=== PATIENT | male | born 1995 | race Caucasian/White ===

== ENCOUNTER 2016-12-23 15:25 | Emergency (ER) | payer OTHER ==
--- NOTE | 2016-12-23 16:21 | DIAGNOSTIC IMAGING REPORT ---
PROCEDURE: CT ABDOMEN/PELVIS W/O CONTRAST INDICATION: Right flank pain, initial encounter TECHNIQUE: Noncontrast axial images were obtained of the entire abdomen and pelvis with sagittal and coronal reformations. COMPARISON: CT abdomen/pelvis 08/20/2015 FINDINGS: ABDOMEN: 1.5 mm right UVJ calculus with mild right hydroureteronephrosis. There is a single punctate left renal nonobstructing calculus. Normal left ureter. Liver, gallbladder, pancreas, spleen and adrenal glands are normal. Normal abdominal aorta. PELVIS: Normal appendix. No pelvic mass, inflammatory changes or free fluid. Bones are unremarkable. IMPRESSION: 1. 1.5 mm right UVJ calculus with mild right hydroureteronephrosis 2. Single punctate nonobstructing left renal calculus 3. Results discussed with Herlinda Acosta All CT scans at this facility use dose modulation, iterative reconstruction, and/or weight-based dosing when appropriate to reduce radiation dose to as low as reasonably achievable.
--- NOTE | 2016-12-23 16:33 | ED NURSING NOTES ---
Clinical Report - Nurses [facility] [place] [address] 12/23/2016 15:27 Patient: TRISH REDDY TRIAGE Triage time 1544 PM. Chief Complaint: PAIN WITH URINATION and (right sided flank pain). Alert. No acute distress. --15:46 Moi Carl R.N. 15:44 12/23/16. BP: 144/82 taken on the left arm, via an automated monitor, while lying. HR: 80. RR: 16. O2 saturation: 100%. Temp: 98.4 F (oral). Pain level now: 09/07. --15:46 Moi Carl R.N. Weight: 81.6 kg stated. Height/Length: 68 inches Per Patient. BMI: 27.4. --15:47 Moi Carl R.N. Medications None. --15:46 Moi Carl R.N. Allergies No Known Drug Allergy. --15:46 Moi Carl R.N. History Arrived by private vehicle. Historian: patient. Unaccompanied. This is a new problem and onset was abrupt. (about 2 hours ago). ( Patient presents to the ED with symptoms of severe right sided flank pain. Patient has a hx of kidney stones, states that he passed a small stone last week.). Treatment SENIOR FINANCIAL: Took ibuprofen. FALL RISK ASSESSMENT: Fall risk assessment completed. No fall risk identified. NUTRITIONAL RISK ASSESSMENT: The nutritional risk assessment revealed no deficiencies. FUNCTIONAL ASSESSMENT: Functional assessment: no impairments noted. LEARNING NEEDS ASSESSMENT: The learning needs assessment revealed no barriers. SKIN INTEGRITY ASSESSMENT: Skin integrity risk assessment completed. No skin integrity risk identified. --15:46 Moi Carl R.N. SOCIAL HX: Never smoker. Occasional alcohol use. History of drug use: marijuana. --15:47 Moi Carl R.N. PROBLEMS: Abdominal Pain. Renal Colic. Ureterolithiasis. --15:46 Moi Carl R.N. ADDITIONAL SURGERIES: no known surgeries. PHYSICAL ASSESSMENT Ambulatory to room. GENERAL / NEURO / PSYCH: Alert. Oriented X 4. Appears in no acute distress. HEENT: Mucous membranes are pink. RESPIRATORY: Respirations not labored. Breath sounds within normal limits. CVS: Normal heart rate and rhythm. Capillary refill less than 2 seconds. GI / : Abdomen soft and nontender. Abdominal tenderness in the right lower quadrant. Guarding present. Bowel sounds within normal limits. ( nausea). SKIN: Skin is warm and dry. --15:47 Moi Carl R.N. NURSING PROGRESS NOTES 15:58 12/23/2016 Site #1 started via IV in the left forearm with an 18g angiocath; one attempt. Blood drawn: rainbow set. Labeled in the presence of the patient and sent to the lab. Saline lock flushed with 10 mL saline. --15:58 Moi Carl R.N. 15:58 12/23/2016 Toradol IVP 30 mg given over 2 minute(s) via site #1. Allergies verified and confirmed 5 rights. IV patency established. IV site checked: no pain, redness, or swelling. IV flushed thoroughly pre- and post-medication administration. IVP given by RN. --15:58 Moi Carl R.N. 15:58 12/23/2016 Zofran (Ondansetron HCl) IVP 4 mg given over 2 minute(s) via site #1. Allergies verified and confirmed 5 rights. IV patency established. IV site checked: no pain, redness, or swelling. IV flushed thoroughly pre- and post-medication administration. IVP given by RN. --15:58 Moi Carl R.N. 16:37 12/23/2016 Oxycodone-APAP (Oxycodone-Acetaminophen) PO 5/325 mg Tablets 1 tab given. Allergies verified, confirmed 5 rights and sedative warning given to the patient. --16:48 Ellie Dc R.N. 16:43 12/23/2016 Site #1 removed upon discharge. Bandaid applied. --16:48 Ellie Dc R.N. 16:43 12/23/2016 IV Saline Lock Drip IV Discontinued: bag #1 STOPPED upon discharge. Total amount infused: 0 mL. IV patency established. IV site checked: no pain, redness, or swelling. IV flushed thoroughly. --16:48 Ellie Dc R.N. late entry -15:45 PM. Reassurance given to the patient. Call light placed in reach. Side rails up x 1. Bed placed in lowest position. Brakes of bed on. --22:19 Moi Carl R.N. DISPOSITION / DISCHARGE 16:45. Condition at departure: improved and stable. No learning barriers present. Discharge instructions provided and reviewed with the patient and parent. Reviewed medication(s) (zofran,tordol, percocet). Patient and parent verbalized understanding. Written instructions provided in [place]er. The patient was discharged home and accompanied by parent. He left the Emergency Department ambulatory and via private vehicle. Parent driving. --16:52 Ellie Dc R.N. 16:45 12/23/16. BP: 138/78. HR: 74. RR: 18. O2 saturation: 100%. Temp: deferred. Pain level now: 07/08. --16:52 Ellie Dc R.N. Locked/Released at 12/23/2016 22:20 by Moi Carl R.N.
--- NOTE | 2016-12-23 16:33 | ED NURSING NOTES ---
Clinical Report - Nurses [facility] [place] [address] 12/23/2016 15:27 Patient: TRISH REDDY TRIAGE Triage time 1544 PM. Chief Complaint: PAIN WITH URINATION and (right sided flank pain). Alert. No acute distress. --15:46 Moi Carl R.N. 15:44 12/23/16. BP: 144/82 taken on the left arm, via an automated monitor, while lying. HR: 80. RR: 16. O2 saturation: 100%. Temp: 98.4 F (oral). Pain level now: 09/07. --15:46 Moi Carl R.N. Weight: 81.6 kg stated. Height/Length: 68 inches Per Patient. BMI: 27.4. --15:47 Moi Carl R.N. Medications None. --15:46 Moi Carl R.N. Allergies No Known Drug Allergy. --15:46 Moi Carl R.N. History Arrived by private vehicle. Historian: patient. Unaccompanied. This is a new problem and onset was abrupt. (about 2 hours ago). ( Patient presents to the ED with symptoms of severe right sided flank pain. Patient has a hx of kidney stones, states that he passed a small stone last week.). 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 FALL RISK ASSESSMENT: Fall risk assessment completed. No fall risk identified. NUTRITIONAL RISK ASSESSMENT: The nutritional risk assessment revealed no deficiencies. FUNCTIONAL ASSESSMENT: Functional assessment: no impairments noted. LEARNING NEEDS ASSESSMENT: The learning needs assessment revealed no barriers. SKIN INTEGRITY ASSESSMENT: Skin integrity risk assessment completed. No skin integrity risk identified. --15:46 Moi Carl R.N. SOCIAL HX: Never smoker. Occasional alcohol use. History of drug use: marijuana. --15:47 Moi Carl R.N. PROBLEMS: Abdominal Pain. Renal Colic. Ureterolithiasis. --15:46 Moi Carl R.N. ADDITIONAL SURGERIES: no known surgeries. PHYSICAL ASSESSMENT Ambulatory to room. GENERAL / NEURO / PSYCH: Alert. Oriented X 4. Appears in no acute distress. HEENT: Mucous membranes are pink. RESPIRATORY: Respirations not labored. Breath sounds within normal limits. CVS: Normal heart rate and rhythm. Capillary refill less than 2 seconds. GI / : Abdomen soft and nontender. Abdominal tenderness in the right lower quadrant. Guarding present. Bowel sounds within normal limits. ( nausea). SKIN: Skin is warm and dry. --15:47 Moi Carl R.N. NURSING PROGRESS NOTES 15:58 12/23/2016 Site #1 started via IV in the left forearm with an 18g angiocath; one attempt. Blood drawn: rainbow set. Labeled in the presence of the patient and sent to the lab. Saline lock flushed with 10 mL saline. --15:58 Moi Carl R.N. 15:58 12/23/2016 Toradol IVP 30 mg given over 2 minute(s) via site #1. Allergies verified and confirmed 5 rights. IV patency established. IV site checked: no pain, redness, or swelling. IV flushed thoroughly pre- and post-medication administration. IVP given by RN. --15:58 Moi Carl R.N. 15:58 12/23/2016 Zofran (Ondansetron HCl) IVP 4 mg given over 2 minute(s) via site #1. Allergies verified and confirmed 5 rights. IV patency established. IV site checked: no pain, redness, or swelling. IV flushed thoroughly pre- and post-medication administration. IVP given by RN. --15:58 Moi Carl R.N. 16:37 12/23/2016 Oxycodone-APAP (Oxycodone-Acetaminophen) PO 5/325 mg Tablets 1 tab given. Allergies verified, confirmed 5 rights and sedative warning given to the patient. --16:48 Ellie Dc R.N. 16:43 12/23/2016 Site #1 removed upon discharge. Bandaid applied. --16:48 Ellie Dc R.N. 16:43 12/23/2016 IV Saline Lock Drip IV Discontinued: bag #1 STOPPED upon discharge. Total amount infused: 0 mL. IV patency established. IV site checked: no pain, redness, or swelling. IV flushed thoroughly. --16:48 Ellie Dc R.N. late entry -15:45 PM. Reassurance given to the patient. Call light placed in reach. Side rails up x 1. Bed placed in lowest position. Brakes of bed on. --22:19 Moi Carl R.N. DISPOSITION / DISCHARGE 16:45. Condition at departure: improved and stable. No learning barriers present. Discharge instructions provided and reviewed with the patient and parent. Reviewed medication(s) (zofran,tordol, percocet). Patient and parent verbalized understanding. Written instructions provided in [place]ian. The patient was discharged home and accompanied by parent. He left the Emergency Department ambulatory and via private vehicle. Parent driving. --16:52 Ellie Dc R.N. 16:45 12/23/16. BP: 138/78. HR: 74. RR: 18. O2 saturation: 100%. Temp: deferred. Pain level now: 07/08. --16:52 Ellie Dc R.N. Locked/Released at 12/23/2016 22:20 by Moi Carl R.N.
--- NOTE | 2016-12-23 16:33 | ED CLINICAL REPORT ---
Clinical Report - Physicians/Mid Levels [facility] [address] [place] [address] 12/23/2016 15:27 Patient: TRISH REDDY Time Seen: 1540; upon arrival, initial patient contact, initial documentation, patient care assumed. Arrived- By private vehicle. Historian- patient. HISTORY OF PRESENT ILLNESS Chief Complaint: ABDOMINAL PAIN and FLANK PAIN. At its maximum, severity described as severe. When seen in the E.D., severity described as severe. Modifying factors. Not worsened by anything. Not relieved by anything. It is described as "pain", sharp and stabbing. No radiation. It is described as located in the right flank and the right abdomen and right lower quadrant. This started just prior to arrival about 2 hours ago DEPUTY GENERAL COUNSEL. The patient has had nausea. No loss of appetite, vomiting or diarrhea. No additional abdominal pain. No recent travel. Similar symptoms previously: Frequently, as bad. ( states it feels same as when he has had kidney stones). Recent medical care: Not recently seen/assessed. REVIEW OF SYSTEMS No constipation, black stools, hematemesis, difficulty with urination or urinary frequency. No bloody stools, fever, chest pain or difficulty breathing. He has had pain on urination. All systems otherwise negative, except as recorded above. PAST HISTORY See nurses notes. PROBLEMS: Abdominal Pain. Renal Colic. Ureterolithiasis. --15:46 Moi Carl R.N. ADDITIONAL SURGERIES: no known surgeries. SOCIAL HISTORY Never smoker. Occasional alcohol use. History of occasional drug use: marijuana. No recent travel. Is a local resident. FAMILY HISTORY Negative. ADDITIONAL NOTES The nursing notes have been reviewed with agreement regarding the chief complaint, HPI, ROS, PMH and patient medications and allergies. PHYSICAL EXAM Vital Signs: 12/23/2016 15:44 BP: 144/82. HR: 80. RR: 16. O2 saturation: 100%. Temp: 98.4 F. Pain level now: 10/10. Have been reviewed as normal and appear to be correct. Appearance: Alert. Oriented X3. No acute distress. Eyes: Pupils equal, round and reactive to light. Eyes normal inspection. Neck: Normal inspection. Neck supple. CVS: Normal heart rate and rhythm. Heart sounds normal. Pulses normal. Respiratory: No respiratory distress. Breath sounds normal. Chest nontender. Abdomen: Soft and nontender. Bowel sounds normal. No organomegaly. No mass. Back: Normal inspection. Skin: Skin warm and dry. Normal skin color. No rash. Normal skin turgor. Extremities: Extremities exhibit normal ROM. No lower extremity edema. Neuro: Oriented X 3. No motor deficit. No sensory deficit. LABS, X-RAYS, AND EKG Abdominal CT: . IMPRESSION: 1. 1.5 mm right UVJ calculus with mild right hydroureteronephrosis 2. Single punctate nonobstructing left renal calculus 3. Results discussed with Herlinda Acosta All CT scans at this facility use dose modulation, iterative reconstruction, and/or weight-based dosing when appropriate to reduce radiation dose to as low as reasonably achievable. Electronically Final signed by:Juan R Adams MD 12/23/2016 4:21:35 PM. The study was interpreted by the radiologist and discussed with the radiologist. Laboratory Tests: UA-Culture if indicated: (ALEC: 12/23/2016 15:24) ( [facility] 12/23/2016 16:23) IP Test Result Flag Units (Reference) URINE COLOR YELLOW URINE APPEARANCE CLOUDY URINE GLUCOSE NEGATIVE (NEGATIVE) URINE BILIRUBIN NEGATIVE (NEGATIVE) URINE KETONE NEGATIVE (NEGATIVE) URINE SPECIFIC GRAVITY 1.010 (1.010-1.030) URINE PH 8.5 H (5.0-8.0) URINE PROTEIN TRACE (NEGATIVE) URINE UROBILINOGEN 0.2 EU/dL (0.2-1.0) URINE NITRITE NEGATIVE (NEGATIVE) URINE BLOOD NEGATIVE (NEGATIVE) URINE LEUK ESTERASE NEGATIVE (NEGATIVE) CBC w Diff: (ALEC: 12/23/2016 15:55) ( [facility] 12/23/2016 16:04) Final results Test Result Flag Units (Reference) WHITE BLOOD COUNT 10.0 K/uL (4.5-11.5) RED BLOOD COUNT 5.12 M/uL (4.50-5.90) HEMOGLOBIN 15.2 gm/dL (13.5-17.5) HEMATOCRIT 46.1 % (41.0-53.0) MEAN CELL VOLUME 90 fL (80-100) MEAN CORPUSCULAR HGB 30 pg (26-34) MEAN CORPUSCULAR HGB CONC 33 g/dL (31-37) RED CELL DISTRIBUTION WIDTH 12.2 % (11.6-14.8) PLATELET COUNT 335 K/uL (150-400) NEUTROPHIL % 68.5 % (50-75) LYMPH % 21.9 L % (25-40) MONO % 8.2 % (3-14) EOSINOPHIL % 0.8 % (0-4) BASOPHIL % 0.6 % (0-2) CMP: (ALEC: 12/23/2016 15:55) ( MsgRcvd 12/23/2016 16:15) Final results Test Result Flag Units (Reference) GLUCOSE 102 mg/dL (70-110) BUN 12 mg/dL (7-18) CREATININE 1.1 mg/dL (0.6-1.3) Estimated GFR >60 mL/min Estimated GFR- >60 mL/min Note: Persistent reduction over 3 months in eGFR<60 mL/min/1.73 m2 defines CKD. Patients with eGFR values>=60 mL/min/1.73 m2 may also have CKD if evidence ofpersistent proteinuria. Additional information may be foundat www.kidney.org. SODIUM 137 mmol/L (136-145) POTASSIUM 3.4 L mmol/L (3.5-5.1) CHLORIDE 102 mmol/L (98-107) CARBON DIOXIDE 27 mmol/L (21-32) CALCIUM 8.8 mg/dL (8.5-10.1) TOTAL PROTEIN 7.7 g/dL (6.4-8.2) ALBUMIN 4.5 g/dL (3.3-5.0) BILIRUBIN, TOTAL 0.3 mg/dL (0.0-1.0) ALKALINE PHOSPHATASE 77 U/L (46-116) AST (SGOT) 18 U/L (15-37) ALT (SGPT) 37 U/L (12-78) LIPASE 151 U/L (73-393) AMYLASE 52 U/L (25-115) . PROGRESS AND PROCEDURES Course of Care: nurse reporting pt would like something else via rx than norco. Patient counseled in person regarding the patient's stable condition, test results and diagnosis. 16:31. Differential Diagnosis: I considered acute appendicitis, mesenteric lymphadenitis, diverticulitis, colon cancer, biliary colic, cholecystitis, cholelithiasis, hepatitis, pancreatitis, common bile duct obstruction, urinary tract infection, ureterolithiasis and viral syndrome as a possible cause of abdominal pain in this patient. This is a partial list of diagnoses considered. Above considerations are based on history, physical exam, laboratory data and other information. Differential diagnosis was discussed with patient. Disposition: Discharged home in good and improved condition (16:33). Condition: good and stable. CLINICAL IMPRESSION Ureterolithiasis (single stone) in the right kidney with renal colic. No hydronephrosis, acute pyelonephritis, urinary tract infection or hematuria. INSTRUCTIONS Do not work today, tomorrow. Drink plenty of fluids. (strain all urine). Warnings: GENERAL WARNINGS: Return or contact your physician immediately if your condition worsens or changes unexpectedly, if not improving as expected, or if other problems arise. SPECIFICALLY, return if you develop pain in the abdomen, pelvis or testicle, fever, the inability to keep fluids down, blood in vomitus, blood in diarrhea, fainting or lightheadedness. Prescription Medications: Zofran 4 mg: Take 1 orally every six hours as needed for nausea/vomiting. Dispense ten (10). No refills. Substitution is permissible. Percocet 5 mg/325 mg: take 1 tablet orally every 6 hours as needed for pain. Dispense fifteen (15). No refills. Substitution is permissible. Toradol 10 mg tablets: Take 1 tablet orally every 6 hours as needed. Dispense fifteen (15). No refills. Substitution is permissible. Follow-up: Follow up with your doctor in about three days even if well. Call for an appointment. Summary of care provided to patient. Understanding of the discharge instructions verbalized by patient. (Electronically signed by Herlinda Acosta A.R.N.P. 12/23/2016 20:21)
--- NOTE | 2016-12-23 16:33 | ED ORDER SUMMARY ---
..... Patient: TRISH REDDY OrderSheet [facility] VisitID: [id number] [place] [address] 21y, M Registration Date/Time: 12/23/2016 ORDER SHEET Weight: 81.6 kg (stated) Allergies: No Known Drug Allergy GENERAL ORDERS: UA-Culture if indicated Urgent (15:41 12/23/2016 HOShaughnessy R.N. per protocol) (Ack 15:43 LNations ER Tech1) (15:58 HOShaughnessy R.N.) CBC w Diff Urgent (15:48 12/23/2016 HBivens A.R.N.P.) (Ack 15:57 LNations ER Tech1) (15:58 HOShaughnessy R.N.) CMP Urgent (15:48 12/23/2016 HBivens A.R.N.P.) (Ack 15:57 LNations ER Tech1) (15:58 HOShaughnessy R.N.) Amylase Urgent (15:48 12/23/2016 HBivens A.R.N.P.) (Ack 15:57 LNations ER Tech1) (15:58 HOShaughnessy R.N.) Lipase Urgent (15:48 12/23/2016 HBivens A.R.N.P.) (Ack 15:57 LNations ER Tech1) (15:58 HOShaughnessy R.N.) CT Abd/Pel wo Cont Urgent (15:48 12/23/2016 HBivens A.R.N.P.) (Ack 15:57 LNations ER Tech1) (16:36 DDean R.N.) Urine Strainer (16:34 12/23/2016 HBivens A.R.N.P.) (16:47 DDean R.N.) MEDICATION ORDERS: Oxycodone-APAP PO 5/325 mg (HIGH ALERT MEDICATION, NOW) (16:41 12/23/2016 HBivens A.R.N.P.) (16:48 DDean R.N.) IV FLUIDS: Toradol IV 30 mg (NOW) (15:47 12/23/2016 HBivens A.R.N.P.) (15:58 Kleber R.N.) Zofran IV 4 mg (NOW) (15:47 12/23/2016 HBivens A.R.N.P.) (15:58 Kleber R.N.) IV Saline Lock (15:48 12/23/2016 HBivens A.R.N.P.) (15:58 Kleber R.N.) ORDER SHEET NOTES: [Electronically signed by Herlinda AcostaR.N.PKiara (20:21 12/23/2016)] [Electronically signed by Moi Carl R.N. (22:20 12/23/2016)] [Electronically locked/signed by Moi Carl R.N. (22:20 12/23/2016)]
--- NOTE | 2016-12-23 16:33 | ED ORDER SUMMARY ---
..... Patient: TRISH REDDY OrderSheet [facility] VisitID: [id number] [place] [address] 21y, M Registration Date/Time: 12/23/2016 ORDER SHEET Weight: 81.6 kg (stated) Allergies: No Known Drug Allergy GENERAL ORDERS: UA-Culture if indicated Urgent (15:41 12/23/2016 HOShaughnessy R.N. per protocol) (Ack 15:43 LNations ER Tech1) (15:58 HOShaughnessy R.N.) CBC w Diff Urgent (15:48 12/23/2016 HBivens A.R.N.P.) (Ack 15:57 LNations ER Tech1) (15:58 HOShaughnessy R.N.) CMP Urgent (15:48 12/23/2016 HBivens A.R.N.P.) (Ack 15:57 LNations ER Tech1) (15:58 HOShaughnessy R.N.) Amylase Urgent (15:48 12/23/2016 HBivens A.R.N.P.) (Ack 15:57 LNations ER Tech1) (15:58 HOShaughnessy R.N.) Lipase Urgent (15:48 12/23/2016 HBivens A.R.N.P.) (Ack 15:57 LNations ER Tech1) (15:58 HOShaughnessy R.N.) CT Abd/Pel wo Cont Urgent (15:48 12/23/2016 HBivens A.R.N.P.) (Ack 15:57 LNations ER Tech1) (16:36 DDean R.N.) Urine Strainer (16:34 12/23/2016 HBivens A.R.N.P.) (16:47 DDean R.N.) MEDICATION ORDERS: Oxycodone-APAP PO 5/325 mg (HIGH ALERT MEDICATION, NOW) (16:41 12/23/2016 HBivens A.R.N.P.) (16:48 DDean R.N.) IV FLUIDS: Toradol IV 30 mg (NOW) (15:47 12/23/2016 HBivens A.R.N.P.) (15:58 Kleber R.N.) Zofran IV 4 mg (NOW) (15:47 12/23/2016 HBivens A.R.N.P.) (15:58 Kleber R.N.) IV Saline Lock (15:48 12/23/2016 HBivens A.R.N.P.) (15:58 Kleber R.N.) ORDER SHEET NOTES: [Electronically signed by Herlinda AcostaR.N.PKiara (20:21 12/23/2016)] [Electronically signed by Moi Carl R.N. (22:20 12/23/2016)] [Electronically locked/signed by Moi Carl R.N. (22:20 12/23/2016)]
--- NOTE | 2016-12-23 22:20 | ED MED RECONCILIATION SUMMARY ---
Patient: TRISH REDDY Medication Reconciliation Report [facility] VisitID: [id number] [place] [address] 21y, M Registration Date/Time: 12/23/2016 Weight: 81.6 kg Height/Length: 68 in. BMI: 27.4 ALLERGIES: No Known Drug Allergy The patient's Home Medications are listed below: NONE. The source(s) of the original Home Medication information: Not obtained. The following Medications were given to the patient in the Emergency Department: Toradol [IVP] IVP 30 mg, administered: 12/23/2016 3:58:00 PM Zofran [IVP] IVP 4 mg, administered: 12/23/2016 3:58:00 PM Oxycodone-APAP [PO] PO 1 tab, administered: 12/23/2016 4:37:00 PM The following Medications were prescribed to the patient: Zofran 4 mg: Take 1 orally every six hours as needed for nausea/vomiting. Dispense ten (10). No refills. Substitution is permissible. -- Herlinda Acosta, A.R.N.P. Percocet 5 mg/325 mg: take 1 tablet orally every 6 hours as needed for pain. Dispense fifteen (15). No refills. Substitution is permissible. -- Herlinda Acosta, A.R.N.P. Toradol 10 mg tablets: Take 1 tablet orally every 6 hours as needed. Dispense fifteen (15). No refills. Substitution is permissible. -- Herlinda Acosta A.R.N.P.
--- NOTE | 2016-12-23 22:20 | ED MAR SUMMARY ---
..... Medication Administration Record [facility] [address] [place] [address] Patient: TRISH REDDY Visit ID: [id number] 21y, M Weight: 81.6 kg Height/Length: 68 in BMI: 27.4 ALLERGIES: No Known Drug Allergy Given 15:58 12/23/2016 Moi Carl, RAnia Medication Administered: TORADOL [IVP], Dose: 30 mg IVP over 2 minute(s), Site: #1 left forearm. Medication Ordered: Toradol IV 30 mg (NOW). Given 15:58 12/23/2016 Moi Carl RAnia Medication Administered: ZOFRAN [IVP] (ONDANSETRON HCL), Dose: 4 mg IVP over 2 minute(s), Site: #1 left forearm. Medication Ordered: Zofran IV 4 mg (NOW). Given 16:37 12/23/2016 Ellie Dc RAnia Medication Administered: OXYCODONE-APAP [PO] (OXYCODONE-ACETAMINOPHEN), Dose: 1 tab 5/325 mg Tablets PO. Medication Ordered: Oxycodone-APAP PO 5/325 mg (HIGH ALERT MEDICATION, NOW).
--- NOTE | 2016-12-23 22:20 | ED DISCHARGE INSTRUCTIONS ---
Patient: TRISH REDDY General Instructions [facility] VisitID: [id number] [place] [address] 21y, M Registration Date/Time: 12/23/2016 Ureterolithiasis (single stone) in the right kidney with renal colic. No hydronephrosis, acute pyelonephritis, urinary tract infection or hematuria. INSTRUCTIONS Do not work today, tomorrow. Drink plenty of fluids. (strain all urine). Warnings: GENERAL WARNINGS: Return or contact your physician immediately if your condition worsens or changes unexpectedly, if not improving as expected, or if other problems arise. SPECIFICALLY, return if you develop pain in the abdomen, pelvis or testicle, fever, the inability to keep fluids down, blood in vomitus, blood in diarrhea, fainting or lightheadedness. Prescription Medications: Zofran 4 mg: Take 1 orally every six hours as needed for nausea/vomiting. Dispense ten (10). No refills. Substitution is permissible. Percocet 5 mg/325 mg: take 1 tablet orally every 6 hours as needed for pain. Dispense fifteen (15). No refills. Substitution is permissible. Toradol 10 mg tablets: Take 1 tablet orally every 6 hours as needed. Dispense fifteen (15). No refills. Substitution is permissible. Follow-up: Follow up with your doctor in about three days even if well. Call for an appointment. Summary of care provided to patient. Understanding of the discharge instructions verbalized by patient. ADDITIONAL INFORMATION Kidney Stone (W/ Colic) The sharp cramping pain and nausea/vomiting that you have is due to a small stone which has formed in the kidney and is now passing down a narrow tube (ureter) on its way to your bladder. Once it reaches your bladder, the pain will stop. The stone may pass in your urine stream in one piece. [The size may be 1/16" to 1/4" (1-6mm)]. Or, the stone may also break up into julia fragments which you may not even notice. Once you have had a kidney stone, you are at risk for developing another one in the future. Home Care: Drink plenty of fluids (at least 8 to 10 glasses of water a day). Most stones will pass on their own, but may take from a few hours to a few days. Sometimes the stone is too large to pass by itself and special methods will have to be used to remove the stone. Each time you urinate, do so in a jar. Pour the urine from the jar through the strainer and into the toilet. Continue doing this until 24 hours after your pain stops. By then, if there was a kidney stone, it should pass from your bladder. Some stones dissolve into sand-like particles and pass right through the strainer. In that case, you wont ever see a stone. Save any stone that you find in the strainer and bring it to your doctor for analysis. It may be possible to prevent certain types of stones from forming. Therefore, it is important to know what kind of stone you have. Try to stay as active as possible since this will help the stone pass. Do not stay in bed unless your pain prevents you from getting up. You may notice a red, pink or brown color to your urine. This is normal while passing a kidney stone. Follow Up with your doctor or return to this facility if the pain lasts more than 48 hours. Get Prompt Medical Attention if any of the following occur: Pain that is not controlled by the medicine given Repeated vomiting or unable to keep down fluids Weakness, dizziness or fainting Fever of 100.4F (38C) or higher, or as directed by your healthcare provider Passage of solid red or brown urine (can't see through it) or urine with lots of blood clots Unable to pass urine for 8 hours and increasing bladder pressure Ondansetron Oral disintegrating tablet What is this medicine? ONDANSETRON (on ERIN se tahmina) is used to treat nausea and vomiting caused by chemotherapy. It is also used to prevent or treat nausea and vomiting after surgery. How should I use this medicine? These tablets are made to dissolve in the mouth. Do not try to push the tablet through the foil backing. With dry hands, peel away the foil backing and gently remove the tablet. Place the tablet in the mouth and allow it to dissolve, then swallow. While you may take these tablets with water, it is not necessary to do so. Talk to your radio maintainer regarding the use of this medicine in children. Special care may be needed. What side effects may I notice from receiving this medicine? Side effects that you should report to your doctor or health point of care specialist as soon as possible: allergic reactions like skin rash, itching or hives, swelling of the face, lips, or tongue breathing problems dizziness fast or irregular heartbeat feeling faint or lightheaded, falls fever and chills swelling of the hands and feet tightness in the chest Side effects that usually do not require medical attention (report to your doctor or health point of care specialist if they continue or are bothersome): constipation or diarrhea headache What may interact with this medicine? Do not take this medicine with any of the following medications: -apomorphine -cisapride -dofetilide -dronedarone -pimozide -thioridazine -ziprasidone This medicine may also interact with the following medications: -carbamazepine -phenytoin -rifampicin -tramadol -other medicines that prolong the QT interval (cause an abnormal heart rhythm) What if I miss a dose? If you miss a dose, take it as soon as you can. If it is almost time for your next dose, take only that dose. Do not take double or extra doses. Where should I keep my medicine? Keep out of the reach of children. Store between 2 and 30 degrees C (36 and 86 degrees F). Throw away any unused medicine after the expiration date. What should I tell my health care provider before I take this medicine? They need to know if you have any of these conditions: heart disease history of irregular heartbeat liver disease low levels of magnesium or potassium in the blood an unusual or allergic reaction to ondansetron, granisetron, other medicines, foods, dyes, or preservatives or trying to get breast-feeding What should I watch for while using this medicine? Check with your doctor or health point of care specialist as soon as you can if you have any sign of an allergic reaction. Oxycodone Hydrochloride, Acetaminophen Oral tablet What is this medicine? ACETAMINOPHEN; OXYCODONE (a set a PAYTON caleb fen; ox i KOE done) is a pain reliever. It is used to treat mild to moderate pain. How should I use this medicine? Take this medicine by mouth with a full glass of water. Follow the directions on the prescription label. Take your medicine at regular intervals. Do not take your medicine more often than directed. Talk to your radio maintainer regarding the use of this medicine in children. Special care may be needed. Patients over 65 years old may have a stronger reaction and need a smaller dose. What side effects may I notice from receiving this medicine? Side effects that you should report to your doctor or health point of care specialist as soon as possible: allergic reactions like skin rash, itching or hives, swelling of the face, lips, or tongue breathing difficulties, wheezing confusion light headedness or fainting spells severe stomach pain yellowing of the skin or the whites of the eyes Side effects that usually do not require medical attention (report to your doctor or health point of care specialist if they continue or are bothersome): dizziness drowsiness nausea vomiting What may interact with this medicine? alcohol antihistamines barbiturates like amobarbital, butalbital, butabarbital, methohexital, pentobarbital, phenobarbital, thiopental, and secobarbital benztropine drugs for bladder problems like solifenacin, trospium, oxybutynin, tolterodine, hyoscyamine, and methscopolamine drugs for breathing problems like ipratropium and tiotropium drugs for certain stomach or intestine problems like propantheline, homatropine methylbromide, glycopyrrolate, atropine, belladonna, and dicyclomine general anesthetics like etomidate, ketamine, nitrous oxide, propofol, desflurane, enflurane, halothane, isoflurane, and sevoflurane medicines for depression, anxiety, or psychotic disturbances medicines for sleep muscle relaxants naltrexone narcotic medicines (opiates) for pain phenothiazines like perphenazine, thioridazine, chlorpromazine, mesoridazine, fluphenazine, prochlorperazine, promazine, and trifluoperazine scopolamine tramadol trihexyphenidyl What if I miss a dose? If you miss a dose, take it as soon as you can. If it is almost time for your next dose, take only that dose. Do not take double or extra doses. Where should I keep my medicine? Keep out of the reach of children. This medicine can be abused. Keep your medicine in a safe place to protect it from theft. Do not share this medicine with anyone. Selling or giving away this medicine is dangerous and against the law. Store at room temperature between 20 and 25 degrees C (68 and 77 degrees F). Keep container tightly closed. Protect from light. This medicine may cause accidental overdose and if it is taken by other adults, children, or pets. Flush any unused medicine down the toilet to reduce the chance of harm. Do not use the medicine after the expiration date. What should I tell my health care provider before I take this medicine? They need to know if you have any of these conditions: brain tumor Crohn's disease, inflammatory bowel disease, or ulcerative colitis drink more than 3 alcohol containing drinks per day drug abuse or addiction head injury heart or circulation problems kidney disease or problems going to the bathroom liver disease lung disease, asthma, or breathing problems an unusual or allergic reaction to acetaminophen, oxycodone, other opioid analgesics, other medicines, foods, dyes, or preservatives or trying to get breast-feeding What should I watch for while using this medicine? Tell your doctor or health point of care specialist if your pain does not go away, if it gets worse, or if you have new or a different type of pain. You may develop tolerance to the medicine. Tolerance means that you will need a higher dose of the medication for pain relief. Tolerance is normal and is expected if you take this medicine for a long time. Do not suddenly stop taking your medicine because you may develop a severe reaction. Your body becomes used to the medicine. This does NOT mean you are addicted. Addiction is a behavior related to getting and using a drug for a non-medical reason. If you have pain, you have a medical reason to take pain medicine. Your doctor will tell you how much medicine to take. If your doctor wants you to stop the medicine, the dose will be slowly lowered over time to avoid any side effects. You may get drowsy or dizzy. Do not drive, use machinery, or do anything that needs mental alertness until you know how this medicine affects you. Do not stand or sit up quickly, especially if you are an older patient. This reduces the risk of dizzy or fainting spells. Alcohol may interfere with the effect of this medicine. Avoid alcoholic drinks. There are different types of narcotic medicines (opiates) for pain. If you take more than one type at the same time, you may have more side effects. Give your health care provider a list of all medicines you use. Your doctor will tell you how much medicine to take. Do not take more medicine than directed. Call emergency for help if you have problems breathing. The medicine will cause constipation. Try to have a bowel movement at least every 2 to 3 days. If you do not have a bowel movement for 3 days, call your doctor or health point of care specialist. Do not take Tylenol (acetaminophen) or medicines that have acetaminophen with this medicine. Too much acetaminophen can be very dangerous. Many nonprescription medicines contain acetaminophen. Always read the labels carefully to avoid taking more acetaminophen. Ketorolac Tromethamine Oral tablet What is this medicine? KETOROLAC (kaylen toe ROLE ak) is a non-steroidal anti-inflammatory drug (NSAID). It is used for a short while to treat moderate to severe pain, including pain after surgery. It should not be used for more than 5 days. How should I use this medicine? Take this medicine by mouth with a full glass of water. Follow the directions on the prescription label. Take your medicine at regular intervals. Do not take your medicine more often than directed. Do not take more than the recommended dose. A special MedGuide will be given to you by the pharmacist with each prescription and refill. Be sure to read this information carefully each time. Talk to your radio maintainer regarding the use of this medicine in children. While this drug may be prescribed for children as young as 16 years of age for selected conditions, precautions do apply. Patients over 65 years old may have a stronger reaction and need a smaller dose. What side effects may I notice from receiving this medicine? Side effects that you should report to your doctor or health point of care specialist as soon as possible: allergic reactions like skin rash, itching or hives, swelling of the face, lips, or tongue black or tarry stools breathing problems changes in vision chest pain high blood pressure nausea or vomiting redness, blistering, peeling or loosening of the skin, including inside the mouth severe abdominal pain slurred speech or weakness on one side of the body unexplained weight gain or swelling unusual bleeding or bruising unusually weak or tired yellowing of eyes or skin Side effects that usually do not require medical attention (report to your doctor or health point of care specialist if they continue or are bothersome): diarrhea dizziness headache heartburn What may interact with this medicine? Do not take this medicine with any of the following medications: aspirin and aspirin-like medicines cidofovir methotrexate NSAIDs, medicines for pain and inflammation, like ibuprofen or naproxen pemetrexed probenecid This medicine may also interact with the following medications: alcohol alendronate alprazolam carbamazepine cyclosporine diuretics flavocoxid fluoxetine ginkgo lithium medicines for high blood pressure like enalapril medicines that affect platelets like pentoxifylline medicines that treat or prevent blood clots like heparin, warfarin muscle relaxants phenytoin steroid medicines like prednisone or cortisone thiothixene What if I miss a dose? If you miss a dose, take it as soon as you can. If it is almost time for your next dose, take only that dose. Do not take double or extra doses. Where should I keep my medicine? Keep out of the reach of children. Store at room temperature between 20 and 25 degrees C (68 and 77 degrees F). Throw away any unused medicine after the expiration date. What should I tell my health care provider before I take this medicine? They need to know if you have any of these conditions: asthma bleeding problems like hemophilia cigarette smoker drink more than 3 alcohol containing drinks a day heart disease or circulation problems such as heart failure or leg edema (fluid retention) high blood pressure kidney disease liver disease stomach bleeding or ulcers an unusual or allergic reaction to ketorolac, aspirin, other NSAIDs, other medicines, foods, dyes, or preservatives or trying to get breast-feeding What should I watch for while using this medicine? Tell your doctor or health point of care specialist if your pain does not get better. Talk to your doctor before taking another medicine for pain. Do not treat yourself. This medicine does not prevent heart attack or stroke. In fact, this medicine may increase the chance of a heart attack or stroke. The chance may increase with longer use of this medicine and in people who have heart disease. If you take aspirin to prevent heart attack or stroke, talk with your doctor or health point of care specialist. Do not take medicines such as ibuprofen and naproxen with this medicine. Side effects such as stomach upset, nausea, or ulcers may be more likely to occur. Many medicines available without a prescription should not be taken with this medicine. This medicine can cause ulcers and bleeding in the stomach and intestines at any time during treatment. Do not smoke cigarettes or drink alcohol. These increase irritation to your stomach and can make it more susceptible to damage from this medicine. Ulcers and bleeding can happen without warning symptoms and can cause . You may get drowsy or dizzy. Do not drive, use machinery, or do anything that needs mental alertness until you know how this medicine affects you. Do not stand or sit up quickly, especially if you are an older patient. This reduces the risk of dizzy or fainting spells. This medicine can cause you to bleed more easily. Try to avoid damage to your teeth and gums when you brush or floss your teeth. You have been given the following additional information: Kidney Stone W/ Colic Ondansetron Oral disintegrating tablet Oxycodone Hydrochloride, Acetaminophen Oral tablet Ketorolac Tromethamine Oral tablet Do not work today, tomorrow. (Electronically signed by Herlinda Acosta A.R.N.P. 12/23/2016 20:21)
--- NOTE | 2016-12-23 22:20 | ED MAR SUMMARY ---
..... Medication Administration Record [facility] [address] [place] [address] Patient: TRISH REDDY Visit ID: [id number] 21y, M Weight: 81.6 kg Height/Length: 68 in BMI: 27.4 ALLERGIES: No Known Drug Allergy Given 15:58 12/23/2016 Moi Carl, RAnia Medication Administered: TORADOL [IVP], Dose: 30 mg IVP over 2 minute(s), Site: #1 left forearm. Medication Ordered: Toradol IV 30 mg (NOW). Given 15:58 12/23/2016 Moi Carl RAnia Medication Administered: ZOFRAN [IVP] (ONDANSETRON HCL), Dose: 4 mg IVP over 2 minute(s), Site: #1 left forearm. Medication Ordered: Zofran IV 4 mg (NOW). Given 16:37 12/23/2016 Ellie Dc RAnia Medication Administered: OXYCODONE-APAP [PO] (OXYCODONE-ACETAMINOPHEN), Dose: 1 tab 5/325 mg Tablets PO. Medication Ordered: Oxycodone-APAP PO 5/325 mg (HIGH ALERT MEDICATION, NOW).
--- NOTE | 2016-12-23 22:20 | ED MED RECONCILIATION SUMMARY ---
Patient: TRISH REDDY Medication Reconciliation Report [facility] VisitID: [id number] [place] [address] 21y, M Registration Date/Time: 12/23/2016 Weight: 81.6 kg Height/Length: 68 in. BMI: 27.4 ALLERGIES: No Known Drug Allergy The patient's Home Medications are listed below: NONE. The source(s) of the original Home Medication information: Not obtained. The following Medications were given to the patient in the Emergency Department: Toradol [IVP] IVP 30 mg, administered: 12/23/2016 3:58:00 PM Zofran [IVP] IVP 4 mg, administered: 12/23/2016 3:58:00 PM Oxycodone-APAP [PO] PO 1 tab, administered: 12/23/2016 4:37:00 PM The following Medications were prescribed to the patient: Zofran 4 mg: Take 1 orally every six hours as needed for nausea/vomiting. Dispense ten (10). No refills. Substitution is permissible. -- Herlinda Acosta, A.R.N.P. Percocet 5 mg/325 mg: take 1 tablet orally every 6 hours as needed for pain. Dispense fifteen (15). No refills. Substitution is permissible. -- Herlinda Acosta, A.R.N.P. Toradol 10 mg tablets: Take 1 tablet orally every 6 hours as needed. Dispense fifteen (15). No refills. Substitution is permissible. -- Herlinda Acosta A.R.N.P.
== END 2016-12-23 16:45 | disposition home or self-care (01) ==
LOC: ED SRH 15:25
DX: N20.2 Calculus of kidney with calculus of ureter (principal)
CPT/HCPCS: 90004; 90100; 92235; 92530; 95059

== ENCOUNTER 2017-05-05 21:08 | Emergency (ER) | payer OTHER ==
--- NOTE | 2017-05-05 22:36 | DIAGNOSTIC IMAGING REPORT ---
PROCEDURE: CT ABDOMEN/PELVIS W/O CONTRAST INDICATION: VOMITING, left flank pain, history of stones TECHNIQUE: Axial CT images were obtained through the abdomen and pelvis without IV contrast. Coronal and sagittal reformations were created. COMPARISON: 12/23/2016 FINDINGS: Mild left hydronephrosis. Mild left hydroureter. Distally, there is minimal iam ureteric inflammation. A 2 mm calculus is present at the left ureterovesicular junction. Punctate, lower pole left intrarenal calculus. Minimal hyperdensity in the lower pole of the right kidney without discrete calculus formation. Clear lung bases. Normal size heart. No hiatal hernia. The unenhanced appearance of the liver, gallbladder, adrenal glands, right kidney, pancreas and spleen is normal. The abdominal aorta is normal in its course and caliber. There is no retroperitoneal adenopathy or mass. The stomach, upper bowel loops, and mesentery appears normal. Intact anterior abdominal wall. No free fluid, or inflammation. The unenhanced appearance of the prostate gland, seminal vesicles, urinary bladder, pelvic vessels, and pelvic bowel loops is normal. Normal appendix. No suspicious calcifications, free fluid, or mass. Intact osseous structures. IMPRESSION: 1. 2 mm left ureter vesicular junction calculus causing mild left hydroureteronephrosis. 2. A single punctate nonobstructing left lower pole intrarenal calculus and minor hyperdensity in the lower pole of the right kidney without discrete calculus.. 3. Findings called to the emergency room. All CT scans at this facility use dose modulation, iterative reconstruction, and/or weight-based dosing when appropriate to reduce radiation dose to as low as reasonably achievable.
--- NOTE | 2017-05-05 23:15 | ED ORDER SUMMARY ---
..... Patient: TRISH REDDY OrderSheet [facility] VisitID: [id number] [place] [address] 21y, M Registration Date/Time: 05/05/2017 ORDER SHEET Weight: 79.3 kg (stated) Allergies: GENERAL ORDERS: UA-Culture if indicated Urgent (21:45 05/05/2017 Cesar SANTILLAN) (22:39 SS[address] R[address]N.) CT Abd/Pel wo Cont Urgent (21:52 05/05/2017 Cesar SANTILLAN) (Ack 21:58 RColllarry R.N.) (22:25 Shira R.N.) MEDICATION ORDERS: IV FLUIDS: IV NS : initial bolus 1000 mL (1000 mL/hr), then none - (NOW) (21:52 05/05/2017 Cesar SANTILLAN) (22:01 SSambcordell R.N.) Toradol IV 30 mg (NOW) (21:52 05/05/2017 Cesar SANTILLAN) (22:02 SSambcordell R.N.) Zofran IV 4 mg (NOW) (21:53 05/05/2017 Cesar SANTILLAN) (22:02 Natalimbcordell R.N.) Dilaudid IV 1 mg (HIGH ALERT MEDICATION, NOW) (21:53 05/05/2017 Cesar SANTILLAN) (22:03 Natalimbcordell R.N.) ORDER SHEET NOTES: [Electronically signed by Brittany Che R.N. (00:58 05/06/2017)] [Electronically signed by Trinity Murrell MD (03:03 05/06/2017)] [Electronically locked/signed by Brittany Che R.N. (00:58 05/06/2017)]
--- NOTE | 2017-05-05 23:15 | ED ORDER SUMMARY ---
..... Patient: TRISH REDDY OrderSheet [facility] VisitID: [id number] [place] [address] 21y, M Registration Date/Time: 05/05/2017 ORDER SHEET Weight: 79.3 kg (stated) Allergies: GENERAL ORDERS: UA-Culture if indicated Urgent (21:45 05/05/2017 Cesar SANTILLAN) (22:39 SSambcordell R.N.) CT Abd/Pel wo Cont Urgent (21:52 05/05/2017 Cesar SANTILLAN) (Ack 21:58 RColllarry R.N.) (22:25 Shira R.N.) MEDICATION ORDERS: IV FLUIDS: IV NS : initial bolus 1000 mL (1000 mL/hr), then none - (NOW) (21:52 05/05/2017 Cesar SANTILLAN) (22:01 SSambcordell R.N.) Toradol IV 30 mg (NOW) (21:52 05/05/2017 Cesar SANTILLAN) (22:02 SSambcordell R.N.) Zofran IV 4 mg (NOW) (21:53 05/05/2017 Cesar SANTILLAN) (22:02 Natalimbcordell R.N.) Dilaudid IV 1 mg (HIGH ALERT MEDICATION, NOW) (21:53 05/05/2017 Cesar SANTILLAN) (22:03 Natalimbcordell R.N.) ORDER SHEET NOTES: [Electronically signed by Brittany Che R.N. (00:58 05/06/2017)] [Electronically signed by Trinity Murrell MD (03:03 05/06/2017)] [Electronically locked/signed by Brittany Che R.N. (00:58 05/06/2017)]
--- NOTE | 2017-05-05 23:15 | ED CLINICAL REPORT ---
Clinical Report - Physicians/Mid Levels [facility] [address] [place] [address] 05/05/2017 21:08 Patient: TRISH REDDY Time Seen: 21:37. Arrived- By private vehicle. Historian- patient. HISTORY OF PRESENT ILLNESS Chief Complaint: left flank pain. It is described as being moderate in degree and in the area of the left flank and radiating (left lower quadrant abdomen). The quality is noted to be "pain" and similar to prior episodes. Onset was today and it is still present. Modifying factors. Not worsened by anything. Not relieved by anything. Bladder dysfunction (patient states he is in some much pain he cannot urinate). No bowel dysfunction, sensory loss or motor loss. Patient denies an injury. No other injury. Similar symptoms previously: Occasionally. ( Patient has a history of kidney stones.). Recent medical care: Not recently seen/assessed. REVIEW OF SYSTEMS No fever, chills, eye discomfort, headache or sore throat. No cough, difficulty breathing, chest pain, skin rash or diarrhea. No black stools, difficulty with urination, urinary frequency, hematuria or bloody stools. The patient has had abdominal pain, nausea and vomiting. All systems otherwise negative, except as recorded above. PAST HISTORY Problems: Renal Colic. Additional Surgeries: no known surgeries. Medications: None. SOCIAL HISTORY Never smoker. Occasional alcohol use. No drug use. ADDITIONAL NOTES The nursing notes have been reviewed. PHYSICAL EXAM Vital Signs: 05/05/2017 21:36 BP: 134/66. HR: 84. RR: 20. O2 saturation: 95%. Temp: 97.7 F. Pain level now: 10. Have been reviewed. Appearance: Alert. No acute distress. (Patient appears moderately uncomfortable.). HEENT: Normal external inspection. Eyes: Pupils equal, round and reactive to light. Neck: Normal inspection. Painless ROM. CVS: Normal heart rate and rhythm. Heart sounds normal. Pulses normal. Respiratory: No respiratory distress. Breath sounds normal. Abdomen: Normal inspection. Soft. Mild tenderness in the left lower quadrant (Left flank). No guarding or rebound tenderness. Back: Normal inspection. No tenderness. Painless ROM. Skin: Skin warm and dry. Normal skin color. No rash. Normal skin turgor. Extremities: Extremities exhibit normal ROM. Extremities nontender. Neuro: (No gross deficits.). LABS, X-RAYS, AND EKG CT Abdomen - Pelvis: Normal aorta. Normal liver, spleen, pancreas, gallbladder and adrenals. Normal kidneys. A urinary calculus is present (2 mm Left UVJ.). Bladder normal. Appendix normal. No mass. No free fluid. No bony lesion. No diverticulitis. Study type: renal stone evaluation; upper abdomen; lower abdomen; pelvis. Abdomen - pelvic CT performed without contrast. The study was independently viewed by me, interpreted by the radiologist and contemporaneously by me and discussed with the radiologist. Prior studies were not available for comparison. Laboratory Tests: UA-Culture if indicated: (ALEC: 05/05/2017 22:35) ( MsgRcvd 05/05/2017 22:58) Final results Test Result Flag Units (Reference) URINE COLOR YELLOW URINE APPEARANCE SL CLOUDY URINE GLUCOSE NEGATIVE (NEGATIVE) URINE BILIRUBIN NEGATIVE (NEGATIVE) URINE KETONE NEGATIVE (NEGATIVE) URINE SPECIFIC GRAVITY 1.025 (1.010-1.030) URINE PH 6.0 (5.0-8.0) URINE PROTEIN 1+ (NEGATIVE) URINE UROBILINOGEN 0.2 EU/dL (0.2-1.0) URINE NITRITE NEGATIVE (NEGATIVE) URINE BLOOD 3+ (NEGATIVE) URINE LEUK ESTERASE NEGATIVE (NEGATIVE) URINE RBC >100 (TNTC) rbc/hpf (0-1) URINE WBC 1-3 wbc/hpf (0-1) URINE EPITHELIAL CELLS RARE EPI/hpf (0-5) URINE BACTERIA TRACE (<1+) (NONE SEEN) URINE COMMENT CULT NOT INDICATED URINE CULTURES ARE SET-UP BASED ON THE FOLLOWING CRITERIA:POSITIVE NITRITEPOSITIVE LEUKOCYTE ESTERASEGREATER THAN 10 WHITE BLOOD CELLSMODERATE (2+) OR GREATER BACTERIA . Pulse Oximetry: 05/05/2017 21:36 O2 saturation: 95%. (FIO2 - room air). Interpretation: normal. PROGRESS AND PROCEDURES Course of Care: Patient was treated symptomatically with IV fluids, Toradol, Zofran and Dilaudid. After this he was found to be feeling better. I worked him up with a CT scan of the abdomen and pelvis without contrast, which did show a 2 mm stone in his distal left ureter. Urinalysis showed no evidence of infection. Patient and family counseled in person regarding the patient's stable condition, test results, diagnosis and need for follow-up. Concerns were addressed. Old medical records reviewed. Disposition: Discharged. Condition: stable and improved. CLINICAL IMPRESSION Ureterolithiasis (single stone) in the left ureter. INSTRUCTIONS (Your CT scan showed a 1 millimeter stone in your left ureter (tube between your kidney and bladder), just about to pass into your bladder. It did not show any other stones in your kidneys.). Warnings: SEDATIVE MEDICATION: You were given sedative medication during your visit. Do not drive or operate dangerous machinery for 6 hours. GENERAL WARNINGS: Return or contact your physician immediately if your condition worsens or changes unexpectedly, if not improving as expected, or if other problems arise. Prescription Medications: Hydrocodone/APAP 5mg / 325mg: take 1-2 orally every 4 hours as needed for pain. Dispense fifteen (15). No refill. Zofran (orally disintegrating tablets) 4 mg: take 1-2 orally every 6 hours as needed for nausea. Dispense fifteen (15). No refill. Substitution is permissible. Follow-up: Follow up with your doctor in three days if not better. Understanding of the discharge instructions verbalized by patient and family. (Electronically signed by Trinity Murrell MD 05/06/2017 3:03)
--- NOTE | 2017-05-05 23:15 | ED NURSING NOTES ---
Clinical Report - Nurses [facility] [place] [address] [place] [address] 05/05/2017 21:08 Patient: TRISH REDDY TRIAGE Triage time 21:37. Chief Complaint: PAIN WITH URINATION. --21:41 Sheriff Lebron R.N. 21:36 05/05/17. BP: 134/66. HR: 84. RR: 20. O2 saturation: 95%. Temp: 97.7 F. Pain level now: 06/07. --21:41 Sheriff Lebron R.N. Weight: 79.3 kg stated. Height/Length: 67 inches Per Patient. BMI: 27.4. --21:36 Sheriff Lebron R.N. Medications None. --21:39 Sheriff Lebron R.N. Allergies The following entry was struck by Sheriff Lebron R.N., 21:40 (05/05/17) Reason - other(said allergic to some antibiotic but cannnot remember the name.). <<STRICKEN ENTRY-- No Known Drug Allergy. --21:39 Sheriff Lebron R.N. --END STRIKE>>. History ( History of kidney stone. Severe abdominal pain radiates to the back. Started this morning.). SURGERY HX: No history of previous surgery. SOCIAL HX: Never smoker. Occasional alcohol use. No drug use. FALL RISK ASSESSMENT: Fall risk assessment completed. No fall risk identified. NUTRITIONAL RISK ASSESSMENT: The nutritional risk assessment revealed no deficiencies. FUNCTIONAL ASSESSMENT: Functional assessment: no impairments noted. LEARNING NEEDS ASSESSMENT: The learning needs assessment revealed no barriers. SKIN INTEGRITY ASSESSMENT: Skin integrity risk assessment completed. No skin integrity risk identified. --21:41 Sheriff Lebron R.N. PROBLEMS: Abdominal Pain. Renal Colic. Ureterolithiasis. --21:41 Sheriff Lebron R.N. PHYSICAL ASSESSMENT GENERAL / NEURO / PSYCH: Alert. Oriented X 4. Appears in pain. HEENT: Mucous membranes are pink. RESPIRATORY: Respirations not labored. CVS: Capillary refill less than 2 seconds. SKIN: Skin is warm and dry. --21:42 Sheriff Lebron R.N. Ambulatory to room. Patient gowned. --21:42 Sheriff Lebron R.N. NURSING PROGRESS NOTES Head of bed elevated. Two patient identifiers checked. Call light placed in reach. Side rails up x 2. Bed placed in lowest position. Brakes of bed on. --21:42 Sheriff Lebron R.N. 21:56 05/05/2017 Site #1 started via IV in the right antecubital space with an 20g angiocath, with aseptic technique and good blood return; one attempt. Blood drawn: rainbow set. Labeled in the presence of the patient and sent to the lab. Saline lock flushed with 10 mL saline. --21:56 Sheriff Lebron R.N. 22:01 05/05/2017 Started bag #1 1000 mL IV Fluids IV NS (Saline); at 1000 mL/hr over 1 hour(s) via site #1. IV patency established. IV site checked: no pain, redness, or swelling. IV flushed thoroughly pre- and post-medication administration. --22:01 Sheriff Lebron R.N. 22:02 05/05/2017 Toradol IVP 30 mg given over 1 minute(s) via site #1. IV patency established. IV site checked: no pain, redness, or swelling. IV flushed thoroughly pre- and post-medication administration. IVP given by RN. --22:02 Sheriff Lebron R.N. 22:02 05/05/2017 Zofran (Ondansetron HCl) IVP 4 mg given over 1 minute(s) via site #1. IV patency established. IV site checked: no pain, redness, or swelling. IV flushed thoroughly pre- and post-medication administration. IVP given by RN. --22:02 Sheriff Lebron R.N. 22:03 05/05/2017 Dilaudid (HYDROmorphone HCl PF) IVP 1 mg given over 1 minute(s) via site #1. IV patency established. IV site checked: no pain, redness, or swelling. IV flushed thoroughly pre- and post-medication administration. IVP given by RN. --22:03 Sheriff Lebron R.N. 22:39 05/05/17. BP: 137/62. HR: 77. RR: 18. O2 saturation: 97%. Temp: 98.1 F. Pain level now: 0/10. --22:40 Sheriff Lebron R.N. Reassessment after medication administered. He is calm and resting quietly. Overall patient status is improved. ( No pain now. Voided, urine sample sent.). --22:41 Sheriff Lebron R.N. 23:00 05/05/2017 IV Fluids IV NS Discontinued: bag #1 completed. Total amount infused: 1000 mL. IV patency established. IV site checked: no pain, redness, or swelling. IV flushed thoroughly. --00:58 Brittany Che R.N. 23:25 05/05/2017 Site #1 removed upon discharge. Catheter intact. Manual pressure and bandage applied. --00:58 Brittany Che R.N. DISPOSITION / DISCHARGE 23:27 05/05/17. Condition at departure: improved and stable. No learning barriers present. Discharge instructions provided and reviewed with the patient. Reviewed medication(s) side effects, precautions, dosing and course information. Prescription(s) given to the patient. Patient verbalized understanding. Written instructions provided in Greek. The patient was discharged home and accompanied by financial manager. He left the Emergency Department ambulatory and via private vehicle. Workers Compensation Examiner driving. --00:57 Brittany Che R.N. 23:25 05/05/17. BP: 122/60. HR: 81. RR: 14. O2 saturation: 95% on room air. Temp: 98 F (oral). Pain level now: 0/10. --00:57 Brittany Che R.N. Locked/Released at 05/06/2017 0:58 by Brittany Che R.N.
--- NOTE | 2017-05-05 23:15 | ED NURSING NOTES ---
Clinical Report - Nurses [facility] [place] [place] [address] 05/05/2017 21:08 Patient: TRISH REDDY TRIAGE Triage time 21:37. Chief Complaint: PAIN WITH URINATION. --21:41 Sheriff Lebron R.N. 21:36 05/05/17. BP: 134/66. HR: 84. RR: 20. O2 saturation: 95%. Temp: 97.7 F. Pain level now: 06/07. --21:41 Sheriff Lebron R.N. Weight: 79.3 kg stated. Height/Length: 67 inches Per Patient. BMI: 27.4. --21:36 Sheriff Lebron R.N. Medications None. --21:39 Sheriff Lebron R.N. Allergies The following entry was struck by Sheriff Lebron R.N., 21:40 (05/05/17) Reason - other(said allergic to some antibiotic but cannnot remember the name.). <<STRICKEN ENTRY-- No Known Drug Allergy. --21:39 Sheriff Lebron R.N. --END STRIKE>>. History ( History of kidney stone. Severe abdominal pain radiates to the back. Started this morning.). SURGERY HX: No history of previous surgery. SOCIAL HX: Never smoker. Occasional alcohol use. No drug use. FALL RISK ASSESSMENT: Fall risk assessment completed. No fall risk identified. NUTRITIONAL RISK ASSESSMENT: The nutritional risk assessment revealed no deficiencies. FUNCTIONAL ASSESSMENT: Functional assessment: no impairments noted. LEARNING NEEDS ASSESSMENT: The learning needs assessment revealed no barriers. SKIN INTEGRITY ASSESSMENT: Skin integrity risk assessment completed. No skin integrity risk identified. --21:41 Sheriff Lebron R.N. PROBLEMS: Abdominal Pain. Renal Colic. Ureterolithiasis. --21:41 Sheriff Lebron R.N. PHYSICAL ASSESSMENT GENERAL / NEURO / PSYCH: Alert. Oriented X 4. Appears in pain. HEENT: Mucous membranes are pink. RESPIRATORY: Respirations not labored. CVS: Capillary refill less than 2 seconds. SKIN: Skin is warm and dry. --21:42 Sheriff Lebron R.N. Ambulatory to room. Patient gowned. --21:42 Sheriff Lebron R.N. NURSING PROGRESS NOTES Head of bed elevated. Two patient identifiers checked. Call light placed in reach. Side rails up x 2. Bed placed in lowest position. Brakes of bed on. --21:42 Sheriff Lebron R.N. 21:56 05/05/2017 Site #1 started via IV in the right antecubital space with an 20g angiocath, with aseptic technique and good blood return; one attempt. Blood drawn: rainbow set. Labeled in the presence of the patient and sent to the lab. Saline lock flushed with 10 mL saline. --21:56 Sheriff Lebron R.N. 22:01 05/05/2017 Started bag #1 1000 mL IV Fluids IV NS (Saline); at 1000 mL/hr over 1 hour(s) via site #1. IV patency established. IV site checked: no pain, redness, or swelling. IV flushed thoroughly pre- and post-medication administration. --22:01 Sheriff Lebron R.N. 22:02 05/05/2017 Toradol IVP 30 mg given over 1 minute(s) via site #1. IV patency established. IV site checked: no pain, redness, or swelling. IV flushed thoroughly pre- and post-medication administration. IVP given by RN. --22:02 Sheriff Lebron R.N. 22:02 05/05/2017 Zofran (Ondansetron HCl) IVP 4 mg given over 1 minute(s) via site #1. IV patency established. IV site checked: no pain, redness, or swelling. IV flushed thoroughly pre- and post-medication administration. IVP given by RN. --22:02 Sheriff Lebron R.N. 22:03 05/05/2017 Dilaudid (HYDROmorphone HCl PF) IVP 1 mg given over 1 minute(s) via site #1. IV patency established. IV site checked: no pain, redness, or swelling. IV flushed thoroughly pre- and post-medication administration. IVP given by RN. --22:03 Sheriff Lebron R.N. 22:39 05/05/17. BP: 137/62. HR: 77. RR: 18. O2 saturation: 97%. Temp: 98.1 F. Pain level now: 0/10. --22:40 Sheriff Lebron R.N. Reassessment after medication administered. He is calm and resting quietly. Overall patient status is improved. ( No pain now. Voided, urine sample sent.). --22:41 Sheriff Lebron R.N. 23:00 05/05/2017 IV Fluids IV NS Discontinued: bag #1 completed. Total amount infused: 1000 mL. IV patency established. IV site checked: no pain, redness, or swelling. IV flushed thoroughly. --00:58 Brittany Che R.N. 23:25 05/05/2017 Site #1 removed upon discharge. Catheter intact. Manual pressure and bandage applied. --00:58 Brittany Che R.N. DISPOSITION / DISCHARGE 23:27 05/05/17. Condition at departure: improved and stable. No learning barriers present. Discharge instructions provided and reviewed with the patient. Reviewed medication(s) side effects, precautions, dosing and course information. Prescription(s) given to the patient. Patient verbalized understanding. Written instructions provided in Iraqi. The patient was discharged home and accompanied by manager emergency department. He left the Emergency Department ambulatory and via private vehicle. Director Sales driving. --00:57 Brittany Che R.N. 23:25 05/05/17. BP: 122/60. HR: 81. RR: 14. O2 saturation: 95% on room air. Temp: 98 F (oral). Pain level now: 0/10. --00:57 Brittany Che R.N. Locked/Released at 05/06/2017 0:58 by Brittany Che R.N.
--- NOTE | 2017-05-06 03:03 | ED MED RECONCILIATION SUMMARY ---
Patient: TRISH REDDY Medication Reconciliation Report [facility] VisitID: [id number] [address] [place] [address] 21y, M Registration Date/Time: 05/05/2017 Weight: 79.3 kg Height/Length: 67 in. BMI: 27.4 ALLERGIES: The patient's Home Medications are listed below: NONE. The source(s) of the original Home Medication information: Not obtained. The following Medications were given to the patient in the Emergency Department: IV NS IV Fluids bolus 0, then 1000 mL/hr, administered: 05/05/2017 10:01:00 PM Toradol [IVP] IVP 30 mg, administered: 05/05/2017 10:02:00 PM Zofran [IVP] IVP 4 mg, administered: 05/05/2017 10:02:00 PM Dilaudid [IVP] IVP 1 mg, administered: 05/05/2017 10:03:00 PM The following Medications were prescribed to the patient: Hydrocodone/APAP 5mg / 325mg: take 1-2 orally every 4 hours as needed for pain. Dispense fifteen (15). No refill. -- Trinity Murrell MD Zofran (orally disintegrating tablets) 4 mg: take 1-2 orally every 6 hours as needed for nausea. Dispense fifteen (15). No refill. Substitution is permissible. -- Trinity Murrell MD
--- NOTE | 2017-05-06 03:03 | ED MAR SUMMARY ---
..... Medication Administration Record [facility] [address] [place] [address] Patient: TRISH REDDY Visit ID: [id number] 21y, M Weight: 79.3 kg Height/Length: 67 in BMI: 27.4 ALLERGIES: Start 22:01 05/05/2017 Sheriff Lebron R.N., Stop 23:00 05/05/2017 Brittany Che R.N. Medication Administered: IV NS (SALINE), Dose: IV Fluids over 1 hour(s), Rate: 1000 mL/hr, Dispensed: 1000 mL bag, Site: #1 right AC. Medication Ordered: IV NS : initial bolus 1000 mL (1000 mL/hr), then none - (NOW). Given 22:02 05/05/2017 Sheriff Lebron R.N. Medication Administered: TORADOL [IVP], Dose: 30 mg IVP over 1 minute(s), Site: #1 right AC. Medication Ordered: Toradol IV 30 mg (NOW). Given 22:02 05/05/2017 Sheriff Lebron R.N. Medication Administered: ZOFRAN [IVP] (ONDANSETRON HCL), Dose: 4 mg IVP over 1 minute(s), Site: #1 right AC. Medication Ordered: Zofran IV 4 mg (NOW). Given 22:03 05/05/2017 Sheriff Lebron R.N. Medication Administered: DILAUDID [IVP] (HYDROMORPHONE HCL PF), Dose: 1 mg IVP over 1 minute(s), Site: #1 right AC. Medication Ordered: Dilaudid IV 1 mg (HIGH ALERT MEDICATION, NOW).
--- NOTE | 2017-05-06 03:03 | ED MAR SUMMARY ---
..... Medication Administration Record [facility] [address] [place] [address] Patient: TRISH REDDY Visit ID: [id number] 21y, M Weight: 79.3 kg Height/Length: 67 in BMI: 27.4 ALLERGIES: Start 22:01 05/05/2017 Sheriff Lebron R.N., Stop 23:00 05/05/2017 Brittany Che R.N. Medication Administered: IV NS (SALINE), Dose: IV Fluids over 1 hour(s), Rate: 1000 mL/hr, Dispensed: 1000 mL bag, Site: #1 right AC. Medication Ordered: IV NS : initial bolus 1000 mL (1000 mL/hr), then none - (NOW). Given 22:02 05/05/2017 Sheriff Lebron R.N. Medication Administered: TORADOL [IVP], Dose: 30 mg IVP over 1 minute(s), Site: #1 right AC. Medication Ordered: Toradol IV 30 mg (NOW). Given 22:02 05/05/2017 Sheriff Lebron R.N. Medication Administered: ZOFRAN [IVP] (ONDANSETRON HCL), Dose: 4 mg IVP over 1 minute(s), Site: #1 right AC. Medication Ordered: Zofran IV 4 mg (NOW). Given 22:03 05/05/2017 Sheriff Lebron R.N. Medication Administered: DILAUDID [IVP] (HYDROMORPHONE HCL PF), Dose: 1 mg IVP over 1 minute(s), Site: #1 right AC. Medication Ordered: Dilaudid IV 1 mg (HIGH ALERT MEDICATION, NOW).
--- NOTE | 2017-05-06 03:03 | ED MED RECONCILIATION SUMMARY ---
Patient: TRISH REDDY Medication Reconciliation Report [facility] VisitID: [id number] [address] [place] [address] 21y, M Registration Date/Time: 05/05/2017 Weight: 79.3 kg Height/Length: 67 in. BMI: 27.4 ALLERGIES: The patient's Home Medications are listed below: NONE. The source(s) of the original Home Medication information: Not obtained. The following Medications were given to the patient in the Emergency Department: IV NS IV Fluids bolus 0, then 1000 mL/hr, administered: 05/05/2017 10:01:00 PM Toradol [IVP] IVP 30 mg, administered: 05/05/2017 10:02:00 PM Zofran [IVP] IVP 4 mg, administered: 05/05/2017 10:02:00 PM Dilaudid [IVP] IVP 1 mg, administered: 05/05/2017 10:03:00 PM The following Medications were prescribed to the patient: Hydrocodone/APAP 5mg / 325mg: take 1-2 orally every 4 hours as needed for pain. Dispense fifteen (15). No refill. -- Trinity Murrell MD Zofran (orally disintegrating tablets) 4 mg: take 1-2 orally every 6 hours as needed for nausea. Dispense fifteen (15). No refill. Substitution is permissible. -- Trinity Murrell MD
--- NOTE | 2017-05-06 03:03 | ED DISCHARGE INSTRUCTIONS ---
Patient: TRISH REDDY General Instructions [facility] VisitID: [id number] [place] [address] 21y, M Registration Date/Time: 05/05/2017 Ureterolithiasis (single stone) in the left ureter. INSTRUCTIONS (Your CT scan showed a 1 millimeter stone in your left ureter (tube between your kidney and bladder), just about to pass into your bladder. It did not show any other stones in your kidneys.). Warnings: SEDATIVE MEDICATION: You were given sedative medication during your visit. Do not drive or operate dangerous machinery for 6 hours. GENERAL WARNINGS: Return or contact your physician immediately if your condition worsens or changes unexpectedly, if not improving as expected, or if other problems arise. Prescription Medications: Hydrocodone/APAP 5mg / 325mg: take 1-2 orally every 4 hours as needed for pain. Dispense fifteen (15). No refill. Zofran (orally disintegrating tablets) 4 mg: take 1-2 orally every 6 hours as needed for nausea. Dispense fifteen (15). No refill. Substitution is permissible. Follow-up: Follow up with your doctor in three days if not better. Understanding of the discharge instructions verbalized by patient and family. ADDITIONAL INFORMATION Kidney Stone (W/ Colic) The sharp cramping pain and nausea/vomiting that you have is due to a small stone which has formed in the kidney and is now passing down a narrow tube (ureter) on its way to your bladder. Once it reaches your bladder, the pain will stop. The stone may pass in your urine stream in one piece. [The size may be 1/16" to 1/4" (1-6mm)]. Or, the stone may also break up into julia fragments which you may not even notice. Once you have had a kidney stone, you are at risk for developing another one in the future. Home Care: Drink plenty of fluids (at least 8 to 10 glasses of water a day). Most stones will pass on their own, but may take from a few hours to a few days. Sometimes the stone is too large to pass by itself and special methods will have to be used to remove the stone. Each time you urinate, do so in a jar. Pour the urine from the jar through the strainer and into the toilet. Continue doing this until 24 hours after your pain stops. By then, if there was a kidney stone, it should pass from your bladder. Some stones dissolve into sand-like particles and pass right through the strainer. In that case, you wont ever see a stone. Save any stone that you find in the strainer and bring it to your doctor for analysis. It may be possible to prevent certain types of stones from forming. Therefore, it is important to know what kind of stone you have. Try to stay as active as possible since this will help the stone pass. Do not stay in bed unless your pain prevents you from getting up. You may notice a red, pink or brown color to your urine. This is normal while passing a kidney stone. Follow Up with your doctor or return to this facility if the pain lasts more than 48 hours. Get Prompt Medical Attention if any of the following occur: Pain that is not controlled by the medicine given Repeated vomiting or unable to keep down fluids Weakness, dizziness or fainting Fever of 100.4F (38C) or higher, or as directed by your healthcare provider Passage of solid red or brown urine (can't see through it) or urine with lots of blood clots Unable to pass urine for 8 hours and increasing bladder pressure You have been given the following additional information: Kidney Stone W/ Colic (Electronically signed by Trinity Murrell MD 05/06/2017 3:03)
== END 2017-05-05 23:27 | disposition home or self-care (01) ==
LOC: ED SRH 21:08
DX: N20.1 Calculus of ureter (principal); Z88.1 Allergy status to other antibiotic agents
CPT/HCPCS: 90004